=== PATIENT | female | born 1990 | race Caucasian/White ===

== ENCOUNTER 2018-05-20 02:43 | Emergency (ER) | payer BC, OTHER ==
[~2018-05-20] VITALS: Ht 167.6 cm; Wt 63.5 kg
[2018-05-20 02:55] VITALS: BP_SYST 105
[2018-05-20] MEDS ORDERED: NACL 0.9% 1,000 ML IV ONE (02:58)
[2018-05-20] MEDS ORDERED: DIPH-TET-PERTUS Vaccine 0.5 ML VIAL (ADACEL) IM ONE (03:00)
[2018-05-20] MEDS ORDERED: DIPHENHYDRAMINE INJ 50 MG/ML VIAL IVP ONE (03:00)
[2018-05-20] MEDS ORDERED: MORPHINE 4 MG/ML INJ. SYRINGE IVP ONE (03:00)
[2018-05-20] MEDS ORDERED: ONDANSETRON HCL 4 MG/2 ML VIAL IVP ONE (03:30)
[2018-05-20] MEDS ORDERED: KETOROLAC TROMETHAMINE 30 MG VIAL IVP ONE (03:45)
[2018-05-20] MEDS ORDERED: BACITRACIN 1 GM OINT TP ONE (04:15)
[2018-05-20 04:32] VITALS: BP_SYST 112
== END 2018-05-20 04:32 | disposition home or self-care (01) ==
LOC: SED 02:43
DX: T23.201A Burn of second degree of right hand, unspecified site, initial encounter (principal); T31.0 Burns involving less than 10% of body surface; X12.XXXA Contact with other hot fluids, initial encounter; Y93.89 Activity, other specified; Y92.89 Other specified places as the place of occurrence of the external cause; Y99.8 Other external cause status
CPT/HCPCS: 90471; 90715; 96374; 96375; 99283; J1200; J1885; J2405; J7030

== ENCOUNTER 2021-07-01 10:11 | Emergency (ER) | payer MEDICAID, SELFPAY ==
--- NOTE | 2021-07-01 10:45 | NUR ---
clled no answer
== END 2021-07-01 13:04 | disposition left against medical advice (07) ==
LOC: SED 10:11
DX: M54.2 Cervicalgia (principal); Z53.21 Procedure and treatment not carried out due to patient leaving prior to being seen by health care provider